=== PATIENT | male | born 1995 | race Caucasian/White ===

== ENCOUNTER 2025-02-04 14:32 | Emergency (ER) | payer OTHER, SELFPAY ==
[2025-02-04 14:35] VITALS: BP 137/90
[2025-02-04 14:52] LABS: % Basophils 0.4 % (0-2); % Eosinophils 1.9 % (0-6); % Immature Granulocytes 0.4 % (0-0.5); % Lymphocytes 15.7 % (20.5-51.1); % Monocytes 7.4 % (1.7-9.3); % Neutrophils 74.2 % (42.2-75.2); Absolute Basophils 0.1 10^3/uL (0-0.2); Absolute Eosinophils 0.3 10^3/uL (0-0.7); Absolute Immature Granulocytes 0.1 10^3/uL (0-0.05); Absolute Lymphocytes 2.6 10^3/uL (1.2-3.4); Absolute Monocytes 1.3 10^3/uL (0.1-0.6); Absolute Neutrophils 12.5 10^3/uL (1.4-6.5); Hematocrit 41.8 % (39.0-52.0); Hemoglobin 14.9 g/dL (13.0-18.0); Mean Corp Hgb Conc. 35.6 g/dL (33.0-37.0); Mean Corpuscular Hgb 29.9 pg (27.0-31.0); Mean Corpuscular Volume 83.9 fL (80.0-94.0); Nucleated Red Blood Cells % 0 % (-); Platelet Count 278 10^3/uL (130-400); Red Blood Cell Count 4.98 10^6/uL (4.70-6.10); Red Cell Dist. Width 11.8 % (11.5-14.5); White Blood Cell Count 16.9 10^3/uL (4.8-10.8)
[2025-02-04 15:07] LABS: ALT (SGPT) 33 U/L (0-50); AST (SGOT) 20 U/L (17-59); Albumin 4.7 g/dl (3.5-5.0); Alkaline Phosphatase 75 U/L (38-126); Blood Urea Nitrogen 7 mg/dl (9-20); Calcium 9.4 mg/dl (8.4-10.2); Carbon Dioxide 28 mmol/L (22-30); Chloride 105 mmol/L (98-107); Glucose 116 mg/dl (70-99); Potassium 4.4 mmol/L (3.5-5.1); Sodium 142 mmol/L (135-145); Total Bilirubin 0.8 mg/dl (0.2-1.3); eGFR > 60.00
[2025-02-04 15:13] LABS: COVID-19 Antigen Negative (Negative)
--- NOTE | 2025-02-04 17:28 | ED.GENMED ---
History of Present Illness
General
Chief Complaint: Headache
Time Seen by Provider: 02/04/25 16:48
History of Present Illness
History of Present Illness:
Patient is a 30-year-old man who is otherwise healthy presenting to the emergency department with headache and cough. Patient is for the past 2 weeks he has had a cough. It has been dry. It has not been getting any better. He does state that he
has had multiple family members at home was sick with flulike illnesses. He has also had a headache for the past 3 days with a tight band around his head. He states that Tylenol does resolve the headache. He denies any headache currently. He is
also been having sinus pressure and green rhinorrhea. No vision changes. No hearing changes. No numbness tingling. No weakness.
Phy Exam
Physical Exam
Physical Exam:
GENERAL: in no acute distress
HEENT: normocephalic, extraocular movements intact, moist oral mucosa, frontal sinus tender to palpation
NECK: normal inspection
RESPIRATORY: no respiratory distress, coarse breath sounds bilaterally
CARDIOVASCULAR: regular rate and rhythm
ABDOMEN/: soft, non-distended, non-tender to palpation, no rebound or guarding
EXTREMITIES: non-tender, no edema/swelling
NEUROLOGIC: awake and alert, moves all extremities
SKIN: warm
Course
Orders/Labs/Results
Orders:
Orders
02/04/25 14:43
COVID-19 Antigen Urgent
Source: Nasal Swab
Complete Blood Count/With Diff Urgent
Comprehensive Metabolic Panel Urgent
Influenza A+B Rapid Molecular Urgent
JEANNE Source: Nasal Swab
Specimen Description:
02/04/25 16:49
CR Chest - 2 Views Urgent
Comment:
Reason For Exam: cough
Abnormal Lab Results
02/04/25
14:43
WBC 16.9 H 10^3/uL
(4.8-10.8)
Abs Immat Gran (auto) 0.1 H 10^3/uL
(0-0.05)
Absolute Neuts (auto) 12.5 H 10^3/uL
(1.4-6.5)
Absolute Monos (auto) 1.3 H 10^3/uL
(0.1-0.6)
Lymphocytes % 15.7 L %
(20.5-51.1)
BUN 7 L mg/dl
(9-20)
Glucose 116 H mg/dl
(70-99)
02/04/25 14:43
02/04/25 14:43
Vital Signs
Initial and Last Documented VS:
Initial Vital Signs
Temp Pulse Resp BP Pulse Ox
98.2 F 83 16 137/90 97
02/04/25 14:35 02/04/25 14:35 02/04/25 14:35 02/04/25 14:35 02/04/25 14:35
Last Documented Vital Signs
Temp Pulse Resp BP Pulse Ox
98.2 F 83 16 137/90 97
02/04/25 14:35 02/04/25 14:35 02/04/25 14:35 02/04/25 14:35 02/04/25 14:35
MDM/Problems Addressed
Differential Diagnosis Includes:
Patient is a 30-year-old man presenting to the emergency department with cough for 2 weeks as well as sinus pain. On arrival patient is afebrile. Exam does show coarse breath sounds bilaterally. Concern for atypical pneumonia versus viral
infection. Headache does seem like a tension headache and there are no red flags to suggest subarachnoid or intracranial abscess or meningitis. It is reassuring that he is headache free currently. His COVID and flu swabs were negative. Blood
work was obtained prior to my evaluation which does show leukocytosis. Chest x-ray with no obvious infiltrate but does appear to have some interstitial thickening per my interpretation. Given the WBC and lung sounds we will start patient on
azithromycin for possible atypical pneumonia. I did discuss patient regarding the sinus pain and that we do not treat sinus infections at this time. Patient will follow-up with PCP to make sure the leukocytosis resolves and if he needs any further
antibiotics for sinus infection.
*Critical Care Note
Total Time (30-74mins, 75-104mins- exclusive of procedures): Not Applicable
ED Attending Note
-
Portions of this chart may have been created with voice recognition software.� Occasional wrong word or��sound alike� substitutions may have occurred due to the inherent limitations of voice recognition software.
Discharge Plan
Departure
Patient Disposition: Home (Routine Discharge)
Date of Disposition: 02/04/25
Time of Disposition: 17:26
Patient with high blood pressure during this ER visit?: No
Discharge Problem:
Cough, Sinus pain
Instructions: Cough in adults - ED discharge instructions
Prescriptions:
New
azithromycin [Zithromax Z-Bogdan] 250 mg tablet
See Rx Instructions .ROUTE .COMPLEX Qty: 6 0RF
Rx Instructions:
500mg on day 1
250mg day 2-5
Activity Restrictions/Additional Instructions:
You were seen in the Emergency Department today for cough and sinus. We did start you on antibiotics. Please make sure you have your blood work repeated by your primary care doctor to make sure your white blood cell count normalizes once you are
back to being healthy.
We would like for you to follow up with your primary care physician for further evaluation. If you experience fever, worsening of your symptoms, or develop any other new or concerning symptoms, please return to the Emergency Department immediately.
Please see the attached sheet for additional information.
Interventions
Interventions:
*Risk Screen - Suicide Last Done: 02/04/25 14:36
*Neglect/Abuse Screening Last Done: 02/04/25 14:36
Discharge Date and Time
Print Language: TURKISH
[2025-02-04 18:04] VITALS: BP 129/76
== END 2025-02-04 18:10 | disposition home or self-care (01) ==
LOC: EMR 14:32
PROVIDERS: Emergency Medicine; EMERGENCY PHYSICIAN Student in an Organized Health Care Education/Training Program; FAMILY PHYSICIAN Internal Medicine
DX: R51.9 Headache, unspecified (principal); R05.9 Cough, unspecified
CPT/HCPCS: 99283; 71046; 80053; 85025; 87502; 87811